=== PATIENT | female | born 1960 | race Caucasian/White ===

== ENCOUNTER → 2017-05-14 | Outpatient (CLI) | payer BC ==
--- NOTE | 2017-05-14 13:03 | REP ---
Low-dose lung screening CT: The study is performed without IV contrast. Images are presented at lung windowing only. There is a 4 ml nodule in the lateral segment right middle lobe on image 44. There is a 5 mm pleural-based lung nodule in the lateral segment right middle lobe on image 48. There is a 7 mm nodule in the lingula on image 55. There are no other nodules or masses. There is linear stranding inferiorly in the lingula, right lower lobe and left lower lobe compatible with parenchymal scarring versus discoid atelectasis. Impression: The largest nodule is a category 4A nodule with a 5-15 percent probability of malignancy. Recommendation is for follow-up low-dose CT in 3 months and PET scan. Signed by Jonny Qureshi MD 05/14/2017 12:54 P
--- NOTE | 2017-06-06 13:41 | REP ---
ADDENDUM ADDED IN [facility].. I have been asked to compare to the nodules found on the current study to a prior chest CT dated 06/02/2015. The 4 mm nodule identified in the lateral segment of the right middle lobe on the current study was not present on the comparison examination. The 5 mm pleural based lung nodule in the lateral segment of the right middle lobe on the current study was not present on the comparison CT. The 7 mm nodule in the lingula on the current study was present previously, however, on the prior study can be seen as artifact from vascular structures. It is unchanged on the current study. Unreviewed MTDD
== END ==
LOC: M RAD 11:08
PROVIDERS: ATTEND Internal Medicine Pulmonary Disease
DX: Z12.2 Encounter for screening for malignant neoplasm of respiratory organs (principal); R93.8 Abnormal findings on diagnostic imaging of other specified body structures; J44.9 Chronic obstructive pulmonary disease, unspecified; Z87.891 Personal history of nicotine dependence

== ENCOUNTER → 2017-11-27 | Outpatient (CLI) | payer BC | LOC: M RAD 12:26 | DX: R91.8 Other nonspecific abnormal finding of lung field (principal) | CPT/HCPCS: 71250 ==

== ENCOUNTER → 2018-12-30 | Outpatient (CLI) | payer BC ==
--- NOTE | 2018-12-31 04:49 | REP ---
Clinical: Lung screening. History nicotine dependence. Comparison: 11/27/2017, 05/14/2017 Technique: Axial low-dose noncontrast images from the thoracic inlet to the upper abdomen using lung screening technique. Findings: The lung pablo are well-aerated moderate emphysematous changes are appreciated. Mild right lower lobe atelectasis identified. Previously identified 4 mm nodule in the right middle lobe has resolved. Previously identified 5 mm subpleural density along the lateral aspect of the right middle lobe remains stable and is essentially inseparable from the major fissure suggesting small scar. 7 mm area of density in the lingula remains unchanged and likely represents scarring. No significant acute consolidation, significant nodule or mass lesion is appreciated. No pleural effusion/reaction or pneumothorax. Tracheobronchial tree is patent. Mediastinum demonstrates mild atherosclerotic changes of the coronary arteries without cardiomegaly. Impression: Lung-RADS category I-S. The three previously identified areas of concern either remain stable through 2017 or have resolved, and no new significant nodule or mass lesion is appreciated. There is however a subtle right lower lobe atelectasis which warrants clinical follow-up. Electronically Signed by Sunil Diamond MD 12/31/2018 04:41 A
== END ==
LOC: M RAD 08:29
PROVIDERS: ATTEND Internal Medicine Pulmonary Disease
DX: Z12.2 Encounter for screening for malignant neoplasm of respiratory organs (principal); Z87.891 Personal history of nicotine dependence; J98.11 Atelectasis; R91.8 Other nonspecific abnormal finding of lung field

== ENCOUNTER → 2020-07-24 | Outpatient (CLI) | payer OTHER ==
--- NOTE | 2020-08-09 11:01 | REP ---
LOW-DOSE LUNG SCREENING CLINICAL: History of nicotine dependence. TECHNIQUE: Axial noncontrast images from the thoracic inlet to the upper abdomen using low dose screening technique. COMPARISON: 12/30/2018, 05/14/2017. FINDINGS: Emphysematous changes are again noted and stable along with minimal scarring primarily at the lingula. Few scattered stable densities are again identified and unchanged from prior examination. No new acute significant nodule or mass lesion. No effusion. No consolidation. Tracheobronchial tree is patent. Atherosclerotic changes to the thoracic aorta and coronary arteries again noted. IMPRESSION: Lung-RADS Category 2 benign stable findings. Management and recommendations include annual low-dose CT evaluation. [facility]
== END ==
LOC: M RAD 10:49
PROVIDERS: ATTEND Internal Medicine Pulmonary Disease
DX: Z12.2 Encounter for screening for malignant neoplasm of respiratory organs (principal); Z87.891 Personal history of nicotine dependence; J43.9 Emphysema, unspecified; I70.0 Atherosclerosis of aorta; I25.10 Atherosclerotic heart disease of native coronary artery without angina pectoris

== ENCOUNTER → 2021-10-01 | Outpatient (CLI) | payer OTHER ==
--- NOTE | 2021-10-01 13:20 | REP ---
INDICATION: COPD. COMPARISON: Multiple the latest 07/24/2020 also low-dose screening CT of the lungs TECHNIQUE: Axial noncontrast images from the thoracic inlet to the upper abdomen using low-dose lung screening technique (LDCT). As per the protocol only lung window images were sent to the read station for interpretation FINDINGS: There is a new 2.1 cm sized spiculated nodule in the right lung apex. There are no additional new abnormal nodules, masses, or opacities. Grossly, the mediastinum and pulmonary elaine appear unchanged. Grossly, the imaged upper abdomen and imaged osseous structures appear unchanged IMPRESSION: New spiculated right apical nodule as described above. According to the revised Fleischner society criteria this represents a category 4 X lesion for which PET-CT is recommended at this time. <Electronically signed by Shon Be > 10/01/21 [id number]
== END ==
LOC: M RAD 12:29
PROVIDERS: ATTEND Internal Medicine Pulmonary Disease
DX: Z12.2 Encounter for screening for malignant neoplasm of respiratory organs (principal); J44.9 Chronic obstructive pulmonary disease, unspecified; Z87.891 Personal history of nicotine dependence; R91.1 Solitary pulmonary nodule

== ENCOUNTER → 2021-10-11 | Outpatient (CLI) | payer OTHER ==
[2021-10-11 14:32] LABS: BLOOD UREA NITROGEN 14 MG/DL (7-18); CREATININE FOR GFR 0.58 MG/DL (0.55-1.30); GLOMERULAR FILTRATION RATE > 60.0 (>45)
== END ==
LOC: M LAB 13:38
PROVIDERS: ATTEND Internal Medicine Pulmonary Disease
DX: J44.9 Chronic obstructive pulmonary disease, unspecified (principal)

== ENCOUNTER → 2021-10-30 | Outpatient (CLI) | payer OTHER ==
[~2021-10-30] MED LIST: ISOVUE-370 76% 100ML VIAL As Ordered ONE
--- NOTE | 2021-10-30 09:16 | REP ---
INDICATION: OTHER NON SPECIFIC ANB FINDING OF LUNG FIELD COMPARISON: Multiple examinations dating through 11/27/2017 TECHNIQUE: Axial contrast enhanced images from the thoracic inlet to the upper abdomen with coronal and sagittal reformations using 75 ml Isovue 370 intravenous contrast material. This CT examination was performed using the following dose reduction techniques: Automated exposure control, adjustment of mA and/or kv according to the patient's size, and use of iterative reconstruction technique. FINDINGS: Spiculated mass in the right lung apex is unchanged from most recent prior examination and is an obvious new mass when compared with 2020. Finding is neoplastic unless proven otherwise. Previously recommended PET-CT has not been obtained. Remainder of the examination demonstrates stable chronic emphysematous changes with minimal scattered scarring. No acute consolidation. No further lesion. No effusion. No pneumothorax. Tracheobronchial tree is patent. Prominent mediastinal and right hilar lymph nodes measuring up to 13 mm short axis diameter. Atherosclerotic changes to the thoracic aorta and coronary arteries noted without aortic aneurysm or cardiomegaly. No pericardial effusion. Surrounding musculoskeletal structures intact and without acute osseous abnormality. IMPRESSION: 2 cm spiculated mass in the right apex along with adenopathy requires further investigation including PET-CT and/or biopsy. <Electronically signed by Sunil Diamond > 10/30/21 [id number]
== END ==
LOC: M RAD 08:30
PROVIDERS: ATTEND Internal Medicine Pulmonary Disease
DX: R91.8 Other nonspecific abnormal finding of lung field (principal)
CPT/HCPCS: 71260; Q9967

== ENCOUNTER 2021-11-21 06:24 | Day surgery (SDC) | payer OTHER ==
[~2021-11-21] VITALS: Ht 157.5 cm; Wt 75.4 kg
[~2021-11-21 06:24] MED LIST changes: +ALBUTEROL SULFATE 2.5 MG/0.5 ML INH NEB SOLN INH ONE; -ISOVUE-370 76% 100ML VIAL As Ordered ONE; +LIDOCAINE 4% INJ 5ML AMP INH ONE; +LR 1,000 ML IV ONE; +PANT40TA29 PO; +PROAAER10 INH; +TREL1AER INH
[2021-11-21] MEDS ORDERED: EPINEPHrine 1MG/10ML SYRINGE 1.5IN As Ordered ONE (07:08)
[2021-11-21] MEDS ORDERED: LIDOCAINE 1% SDV 30ML VIAL As Ordered ONE (07:08)
[2021-11-21] MEDS ORDERED: CETACAINE SPRAY 5GM As Ordered ONE (07:08)
[2021-11-21] MEDS ORDERED: THROMBIN SOLN 20,000 UNITS KIT As Ordered ONE (07:08)
[2021-11-21] MEDS ORDERED: THROMBIN SOLN 5,000 UNITS VIAL As Ordered ONE (07:10)
[2021-11-21] MEDS ORDERED: dexameTHASONE 4 MG/ML 1ML VIAL (J1100 PER 1MG) As Ordered ONE (07:15)
[2021-11-21] MEDS ORDERED: MIDAZOLAM INJ 2MG/2ML VIAL (J2250 PER 1MG) As Ordered ONE (07:15)
[2021-11-21] MEDS ORDERED: fentaNYL 100 MCG/2 ML INJECTION As Ordered ONE (07:15)
[2021-11-21] MEDS ORDERED: LIDOCAINE 2% 100MG/5ML SDV (FOR ANES.) As Ordered ONE (07:16)
[2021-11-21] MEDS ORDERED: ROCURONIUM BROMIDE 50 MG/5 ML VIAL As Ordered ONE ×2 (07:16→08:06)
[2021-11-21] MEDS ORDERED: ONDANSETRON 4MG/2ML VIAL As Ordered ONE (07:16)
[2021-11-21] MEDS ORDERED: propofoL 200 MG/20 ML VIAL As Ordered ONE (07:17)
[2021-11-21] MEDS ORDERED: LIDOCAINE 5% OINT 30GM TUBE As Ordered ONE (08:09)
[2021-11-21] MEDS ORDERED: ePHEDrine SULFATE 25 MG/5 ML(5MG/ML) SYRINGE As Ordered ONE (08:09)
[2021-11-21] MEDS ORDERED: SUGAMMADEX SODIUM 500 MG/5 ML VIAL (BRIDION) As Ordered ONE (08:12)
[2021-11-21] MEDS ORDERED: PHENYLephrine 500MCG 5ML (100MCG/ML) SYRINGE As Ordered ONE (08:25)
[2021-11-21] MEDS ORDERED: LR 1,000 ML IV SCH (09:45)
[2021-11-21] MEDS ORDERED: METOCLOPRAMIDE INJ 10MG/2ML VIAL (J2765 PER 1) IV PRN (09:45)
[2021-11-21] MEDS ORDERED: fentaNYL 100 MCG/2 ML INJECTION IV PRN (09:45)
[2021-11-21] MEDS ORDERED: ONDANSETRON 4MG/2ML VIAL IV PRN (09:45)
[2021-11-21 11:02] VITALS: BP 130/63
== END 2021-11-21 11:52 | disposition home or self-care (01) ==
LOC: M SDC 06:24
PROVIDERS: ATTEND Internal Medicine Pulmonary Disease
DX: R91.8 Other nonspecific abnormal finding of lung field (principal); J44.9 Chronic obstructive pulmonary disease, unspecified; K21.9 Gastro-esophageal reflux disease without esophagitis; B02.9 Zoster without complications; Z87.891 Personal history of nicotine dependence; Z88.1 Allergy status to other antibiotic agents; Z88.2 Allergy status to sulfonamides; Z79.899 Other long term (current) drug therapy; Z79.51 Long term (current) use of inhaled steroids
CPT/HCPCS: 31623; 31624; 31628; 31654; 71045; 76000; 87070; 87102; 87116; 87186; 87205; 87206; 87426; 88104; 88108; 88305; 88313; 93005; J1100; J2250; J2370; J2405; J3010; S2900

== ENCOUNTER → 2021-12-24 | Outpatient (CLI) | payer OTHER ==
[~2021-12-24] MED LIST changes: -ALBUTEROL SULFATE 2.5 MG/0.5 ML INH NEB SOLN INH ONE; -LIDOCAINE 4% INJ 5ML AMP INH ONE; -LR 1,000 ML IV ONE
== END ==
LOC: M PLARAD 15:39
PROVIDERS: ATTEND Internal Medicine Pulmonary Disease
DX: R91.8 Other nonspecific abnormal finding of lung field (principal)
CPT/HCPCS: 78815; A9552

== ENCOUNTER → 2022-02-19 | Outpatient (CLI) | payer OTHER ==
[~2022-02-19] MED LIST changes: +OXYC1TAB23 PO
== END ==
LOC: M LAB 12:09 → M RAD 12:09
PROVIDERS: ATTEND Internal Medicine Pulmonary Disease
DX: R91.8 Other nonspecific abnormal finding of lung field (principal)

== ENCOUNTER → 2022-11-12 | Outpatient (CLI) | payer OTHER | LOC: M RAD 12:32 | PROVIDERS: ATTEND Internal Medicine Pulmonary Disease | DX: Z12.2 Encounter for screening for malignant neoplasm of respiratory organs (principal); Z87.891 Personal history of nicotine dependence ==

== ENCOUNTER → 2024-02-17 | Outpatient (CLI) | payer OTHER | LOC: M RAD 09:39 | PROVIDERS: ATTEND Internal Medicine Pulmonary Disease | DX: Z12.2 Encounter for screening for malignant neoplasm of respiratory organs (principal); Z87.891 Personal history of nicotine dependence; I25.10 Atherosclerotic heart disease of native coronary artery without angina pectoris; I70.0 Atherosclerosis of aorta; I31.39 Other pericardial effusion (noninflammatory); J98.4 Other disorders of lung ==

== ENCOUNTER → 2025-02-28 | Outpatient (CLI) | payer MEDICARE | LOC: M RAD 12:07 | PROVIDERS: ATTEND Internal Medicine Pulmonary Disease | DX: Z12.2 Encounter for screening for malignant neoplasm of respiratory organs (principal); Z87.891 Personal history of nicotine dependence ==